=== PATIENT | female | born 1935 ===

== ENCOUNTER 2021-11-12 08:15 | Inpatient (IN) | payer OTHER ==
[~2021-11-12] VITALS: Ht 160 cm; Wt 79.4 kg
[2021-11-12] MEDS ORDERED: AVAPRO300 MG PO (09:49)
[2021-11-12] MEDS ORDERED: DILANTIN100 MG PO (09:50)
[2021-11-12] MEDS ORDERED: SINGULAIR10 MG PO (09:51)
[2021-11-12] MEDS ORDERED: ZOCOR40 MG PO (09:51)
[2021-11-12] MEDS ORDERED: LEVOTHYROXINE25 MCG PO (09:51)
[2021-11-12] MEDS ORDERED: MILLIPRED5 MG PO (09:52)
[2021-11-12] MEDS ORDERED: HYDROCHLOROTHIA25 MG PO (09:52)
[2021-11-12] MEDS ORDERED: BREO ELLIPTA I1 EACH IH (09:52)
[2021-11-12] MEDS ORDERED: PROAIR RESPICL90 MCG IH (09:53)
[2021-11-12] MEDS ORDERED: SALSALATE500 MG PO (09:53)
[2021-11-16] MEDS ORDERED: AMLODIPINE BESYL5 MG (09:26)
[2021-11-16] MEDS ORDERED: TEGRETOL XR100 MG (09:26)
[2021-11-16] MEDS ORDERED: CLOPIDOGREL BIS75 MG (09:26)
[2021-11-16] MEDS ORDERED: LUMIGAN2.5 M1 (09:27)
[2021-11-16] MEDS ORDERED: COMBIGAN EYE DRO5 ML (09:27)
[2021-11-16] MEDS ORDERED: VASOTEC20 MG (09:27)
[2021-11-18] MEDS ORDERED: BACTRIM DS TAB1 EACH PO (06:32)
[2021-11-18] MEDS ORDERED: XARELTO10 MG PO (06:32)
[2021-11-18] MEDS ORDERED: INTEGRA PLUS C1 EACH PO (06:32)
[2021-11-18] MEDS ORDERED: OXYC1TAB9 PO (06:32)
== END 2021-11-18 19:33 | disposition home or self-care (01) | DRG 467 ==
LOC: O/R 11-16 06:50 → SURH 11-16 06:50
PROVIDERS: ADMIT Orthopaedic Surgery Sports Medicine; ATTEND Orthopaedic Surgery Sports Medicine
PROC: 0SRC0J9 Replacement of Right Knee Joint with Synthetic Substitute, Cemented, Open Approach (ICD-10-PCS; 2021-11-16)
PROC: 0SPC0JZ Removal of Synthetic Substitute from Right Knee Joint, Open Approach (ICD-10-PCS; principal; 2021-11-16 08:15)
PROC: 30233N1 Transfusion of Nonautologous Red Blood Cells into Peripheral Vein, Percutaneous Approach (ICD-10-PCS; 2021-11-18)
DX: T84.032A Mechanical loosening of internal right knee prosthetic joint, initial encounter (principal); D62 Acute posthemorrhagic anemia; Z20.822 Contact with and (suspected) exposure to COVID-19; I10 Essential (primary) hypertension; E66.8 Other obesity; E03.8 Other specified hypothyroidism